=== PATIENT | male | born 1965 | race Caucasian/White ===

== ENCOUNTER 2019-05-02 12:58 | Outpatient (CLI) | payer BC ==
--- NOTE | 2019-05-02 14:43 | RAD ---
LUMBAR SPINE: 05/02/19 Four views. INDICATION: Back pain. Lumbar vertebrae maintain height. There is mild anterolisthesis at L5-S1 and there is evidence of pos terior spondylolysis at L5-S1. There is loss of disc space at all levels. Prominent facet hypertrophy . Mild osteophytes in the lumbar vertebrae. The anterolisthesis at L5-S1 appears to exacerbate slight ly with extension. IMPRESSION: Degenerative changes of the lumbar spine. Mild anterolisthesis at L5-S1 with evidence of posterior sp ondylolysis. POS: OFF
== END 2019-05-02 12:59 | disposition home or self-care (01) ==
LOC: TBSIIMAG 12:58
PROVIDERS: ATTEND Surgery
DX: M47.26 Other spondylosis with radiculopathy, lumbar region (principal); M43.17 Spondylolisthesis, lumbosacral region
CPT/HCPCS: 72110

== ENCOUNTER 2019-06-14 08:27 | Day surgery (SDC) | payer BC ==
[2019-06-14 09:11] LABS: #Basophils 0.1 thou/uL (0.0-0.2); #Eosinphils 0.1 thou/uL (0.0-0.7); #Lymphocytes 1.6 thou/uL (1.20-3.40); #Monocytes 0.6 thou/uL (0.11-0.59); #Neutrophils 5.6 thou/uL (1.40-6.50); %Basophils 0.7 % (0.0-1.0); %Eosinophils 0.8 % (0.0-10.0); %Lymphocytes 20.6 % (21.0-51.0); %Monocytes 7.8 % (0.0-10.0); %Neutrophils 70.1 % (42.0-75.0); Hemoglobin 19.1 g/dL (14.0-18.0); Mean Corpuscular HGB CONC 33.1 g/dL (32.0-36.0); Mean Corpuscular Hemoglobin 33.5 pg (27.0-31.0); Mean Platelet Volume 8.6 fL (7.4-10.4); Platelet Count 221 thou/uL (130-400); RBC Distribution Width 12.6 % (11.5-14.5); Red Blood Cell (RBC) Count 5.69 mill/uL (4.70-6.10)
[2019-06-14 09:17] LABS: INR-International Normal Ratio 0.9; PTT 28.2 SEC (22.9-36.1); Prothrombin Time 12.3 SEC (12.0-14.7)
[2019-06-14 09:24] LABS: Anion Gap 12 mmol/L (10-20); BUN (Urea Nitrogen) 14 mg/dL (8.4-25.7); Calc. Creatinine Clearance 81 mL/min (70-130); Calcium 9.8 mg/dL (7.8-10.44); Carbon Dioxide 31 mmol/L (22-29); Chloride 100 mmol/L (98-107); Estimated GFR-MDRD 58; Glucose 96 mg/dL (70-105); Potassium 4.7 mmol/L (3.5-5.1); Sodium 138 mmol/L (136-145)
[2019-06-14] MEDS ORDERED: Thrombin 5000 UNITS/5 ML VIAL ONE (09:51)
[2019-06-14] MEDS ORDERED: Sodium Chloride 0.9% 10 ML ONE (09:51)
[2019-06-14] MEDS ORDERED: Fentanyl 100 MCG/2 ML VIAL ONE ×5 (10:01→14:04)
[2019-06-14] MEDS ORDERED: Midazolam HCl 2 mg/2 ml Vial ONE (10:07)
[2019-06-14] MEDS ORDERED: Ketorolac Tromethamine 30 MG/ML VIAL ONE (10:50)
[2019-06-14] MEDS ORDERED: Milk Of Magnesia 30 ML UDCUP PO PRN (13:10)
[2019-06-14] MEDS ORDERED: Fleet Enema 133 ML BOT PR PRN (13:10)
[2019-06-14] MEDS ORDERED: traMADol HCl 50 MG TAB PO PRN (13:10)
[2019-06-14] MEDS ORDERED: Mag-Al 1200 mg/1200 mg/30 ML UDCUP PO PRN (13:10)
[2019-06-14] MEDS ORDERED: Acetaminophen/Codeine 30-300mg Tablet PO PRN (13:10)
[2019-06-14] MEDS ORDERED: Ondansetron PF 4 MG/2 ML Vial IVP PRN (13:10)
[2019-06-14] MEDS ORDERED: Acetaminophen 325 MG TAB PO PRN (13:10)
[2019-06-14] MEDS ORDERED: Morphine 2 MG/ML SYRINGE SLOW IVP PRN (13:10)
[2019-06-14] MEDS ORDERED: Bisacodyl 10 MG SUPP PR PRN (13:10)
--- NOTE | 2019-06-14 13:49 | OP ---
DATE OF PROCEDURE: 06/14/2019 LOCATION: OR 12. CHEMISTRY DEPARTMENT CHAIR: Aiden Coronel PA-C PREPROCEDURE DIAGNOSES: Right L3-L4 and right L4-L5 disk extrusions with radiculopathy with low back and right leg pain. POSTPROCEDURE DIAGNOSES: Right L3-L4 and right L4-L5 disk extrusions with radiculopathy with low back and right leg pain. PROCEDURES PERFORMED: 1. Right L3-L4 and right L4-L5 hemilaminotomies, foraminotomies, and diskectomies. 2. Use of operative microscope for microdissection. DESCRIPTION OF PROCEDURE: After informed consent was obtained from the patient, the patient was brought to the OR. He was placed prone. Following anesthesia induction, the prior midline incision was identified from left-sided surgery that he had in the past. This region was sterilely cleansed, prepared, and draped. Proper patient, pause, and identification were carried out. The wound was then opened with a combination of sharp, monopolar, and blunt dissection. Right L3-L4 and right L4-L5 segments were exposed and localization film confirmed our area of interest. Microscope was brought in for microdissection. Right L3-L4 and right L4-L5 hemilaminotomies, foraminotomies, and diskectomies were performed. Right L4 nerve root was quite compressed and compared to the preoperative MRI. More fragments that herniated out of the right L3-L4 disk segment compressing the proximal takeoff of the right L3 and right L4 nerve roots. We were able to maximize freedom of both nerve roots and then, turned our attention to right L4-L5 diskectomy with decompression of the traversing right L5 nerve root. Copious irrigation occurred throughout as did maximizing hemostasis. The wound was then closed in anatomic layers following sprinkling of vancomycin powder. The patient was emerged from anesthesia. Job ID: [id number]
[2019-06-14] MEDS: HYDROcodone/Acetaminophen 7.5/325 mg Tablet PO PRN ×2 (15:02→18:52)
[2019-06-14] MEDS: Sodium Chloride 0.9% 1,000 ML IV SCH ×3 (15:04→20:39)
[2019-06-14] MEDS: CEFAZOLIN 2 GM in Premix Bag 1 BAG IVPB SCH (17:33)
[2019-06-14] MEDS: tiZANidine HCl 4 MG TAB PO PRN (17:38)
[2019-06-14] MEDS ORDERED: Gabapentin 100 MG CAP PO SCH (21:00)
[2019-06-15] MEDS: CEFAZOLIN 2 GM in Premix Bag 1 BAG IVPB SCH (01:38)
[2019-06-15] MEDS: tiZANidine HCl 4 MG TAB PO PRN (01:41)
[2019-06-15] MEDS: HYDROcodone/Acetaminophen 7.5/325 mg Tablet PO PRN ×2 (04:11→08:24)
[2019-06-15 08:12] VITALS: BP 146/78; TEMP 98.3
[2019-06-15] MEDS ORDERED: FLU VACC QS2019-20(6MOS UP)/PF 60 MCG/0.5 ML SYRINGE IM ONE (15:15)
--- NOTE | 2019-06-15 20:01 | DIS ---
DATE OF ADMISSION: 06/14/2019 DATE OF DISCHARGE: 06/15/2019 DISCHARGE DIAGNOSES: 1. Low back pain with right lumbar radiculopathy. 2. Lumbar stenosis with lumbar herniated nucleus pulposus. HOSPITAL COURSE: Mr. Stephens was admitted on 06/14/2019, to undergo right L3-L4 and L4-L5 hemilaminotomy, foraminotomy, diskectomy. The patient's surgery was without complication. There was no CSF leak. He required one overnight stay for adequate pain control at the time of discharge, was doing well postoperatively. He had significant improvement in his right leg pain as well as improved sensation into the right leg. He met criteria for discharge, was ambulating well with good strength in the bilateral lower extremities and improved sensation on exam. Appropriate patient education outpatient followups were provided at the time of discharge, the patient was doing well. He and his were pleased with his outcome postoperatively and certainly understood to call the office with questions or concerns prior to his next followup appointment. Job ID: [id number]
--- NOTE | 2019-06-19 10:18 | EKG ---
Test Reason : PREOP Blood Pressure : / mmHG Vent. Rate : 076 BPM Atrial Rate : 076 BPM P-R Int : 124 ms QRS Dur : 092 ms QT Int : 354 ms P-R-T Axes : 040 041 -12 degrees QTc Int : 398 ms Normal sinus rhythm Minimal voltage criteria for LVH, may be normal variant Nonspecific T wave abnormality Abnormal ECG When compared with ECG of 12-OCT-2016 12:53, No significant change was found Confirmed by EDGARDO SANDOVAL, HARRIET ([id number]) on 06/19/2019 10:17:40 AM Referred By: GERARDO Confirmed By:HARRIET REYNOSO MD
== END 2019-06-15 09:35 | disposition home or self-care (01) ==
LOC: SDC 08:27 → SURG A 14:39 → SDC 06-15 09:35
PROVIDERS: ATTEND Surgery
PROC: 0ST20ZZ Resection of Lumbar Vertebral Disc, Open Approach (ICD-10-PCS; principal; 2019-06-14)
DX: M51.16 Intervertebral disc disorders with radiculopathy, lumbar region (principal); Z88.5 Allergy status to narcotic agent
CPT/HCPCS: 36415; 76000; 80048; 85025; 85610; 85730; 93005; 93010; J0690; J1885; J2250; J2270; J3010; J3370; J3490

== ENCOUNTER 2020-04-25 11:06 | Day surgery (SDC) | payer BC ==
[2020-04-24 09:40] VITALS: BMI 27.1
[2020-04-25] MEDS ORDERED: Magnevist 469MG/ML 20 ML VIAL ONE (11:42)
--- NOTE | 2020-04-25 14:21 | MRI ---
Exam: Lumbar spine MRI with and without contrast HISTORY: Left leg numbness. Back pain. COMPARISON: None FINDINGS: T1 marrow signal hypointensity with associated T2 and STIR hyperintensity along the inferio r endplate of L4 3 in the superior endplate of L4 compatible with type I Modic change. This does appear to be some edema involving the intervening disc space. Mild irregularity and destruction of th e inferior endplate of L3 and superior endplate of L4 are noted. There is associated enhancement of the endplate. No significant enhancement within the disc space. Incidental hemangioma at the L3 verte bral body is noted. Remaining lumbar vertebra have appropriate signal intensity. No pathologic enhancement in the remaining lumbar vertebra. Appropriate signal intensity in the visualized paraspinal muscles and solid organs. T2 hyperintensiti es in the left and right renal cortex are favored to be cysts Conus medullaris terminates at the T12-L1 disc space. Post contrast images do not demonstrate any abn ormal enhancement within the thecal sac including the cauda equina and conus medullaris. T12-L1: Adequate disc hydration. There is a left subarticular disc herniation which deforms the theca l sac. Mild to moderate stenosis of the left aspect of the central spinal canal. Patent bilateral neural foramina L1-L2: Adequate disc hydration. Mild ligament flavum thickening and facet hypertrophy. No significant central canal stenosis or significant neural foraminal narrowing L2-L3: Disc desiccation with mild loss of disc space height. Broad-based disc bulge, ligamentum flavu m thickening and facet hypertrophy result in mild central canal stenosis. T2 and STIR hyperintensity along with enhancement involving the left and right foraminal aspect of the annulus. A nnular fissures are noted. Annular fissure is are adjacent to the left and right foraminal/extraforaminal L2 nerve roots. Mild to moderate neural foraminal narrowing L3-L4: There is a resection of the right facet. There is enhancing scar tissue at the resection site, extending into the right subarticular region. There is also enhancement involving the posterior right aspect of the disc space. There is disc desiccation with a broad-based disc bulge. Mild facet h ypertrophy on the left with fluid. There is mild bilateral ligamentum flavum thickening. Mild to moderate central canal stenosis. Moderate to severe right and mild left neural foraminal narrowing. R ight neural foraminal narrowing predominantly due to disc material. There is some enhancing scar tissue noted in the right neural foramen. L4-L5: Adequate disc hydration. Broad-based disc bulge abuts the thecal sac. There is partial resecti on of the right facet with enhancing scar tissue at the operative site and right subarticular zone. Additional scar tissue appears to be present in the left subarticular zone. There is moderate right a nd moderate to severe left neural foraminal narrowing due to disc material, posterior element hypertrophy and scar tissue in the left neural foramen. L5-S1: Disc desiccation without significant loss of disc space height. Broad-based disc bulge minimal ly contacts the ventral thecal sac. There is partial resection of the right lamina. Associated scar tissue. Overall mild central canal stenosis. Mild to moderate bilateral neural foraminal narrowing. There is heterogeneity involving the left and right S1 vertebral bodies. Correlate for possible insuf ficiency fractures. IMPRESSION: 1. Extensive post surgical changes at the L3-L4 and L4-L5 level. There is enhancing scar tissue encro aching upon subarticular zones and neural foramina as described above. 2. There is abnormal signal intensity involving inferior endplate of L3, superior plate of L4 and int ervening disc. There is associated enhancement. Findings may be on the basis of a type I Modic change. However, possibility of a developing discitis osteomyelitis cannot be excluded given the pres ence of surgical intervention. Clinical correlation is essential. 3. Heterogeneous marrow signal intensity of the sacrum. Correlate for insufficiency fracture. Results of study discussed with Dr. Smalls on 04/25/2020 at 2:17 PM Code CR
== END 2020-04-25 15:40 | disposition home or self-care (01) ==
LOC: SDC/OP 11:06
PROVIDERS: ATTEND Specialist
DX: M51.25 Other intervertebral disc displacement, thoracolumbar region (principal); D18.09 Hemangioma of other sites; M48.07 Spinal stenosis, lumbosacral region; M51.16 Intervertebral disc disorders with radiculopathy, lumbar region; M96.1 Postlaminectomy syndrome, not elsewhere classified; M47.26 Other spondylosis with radiculopathy, lumbar region; M48.061 Spinal stenosis, lumbar region without neurogenic claudication; M47.817 Spondylosis without myelopathy or radiculopathy, lumbosacral region; M46.1 Sacroiliitis, not elsewhere classified; Z88.5 Allergy status to narcotic agent; Z98.890 Other specified postprocedural states
CPT/HCPCS: 72158; 85025; 85652; 86140; A9579

== ENCOUNTER 2020-05-15 09:37 | Outpatient (CLI) | payer BC ==
--- NOTE | 2020-05-15 10:34 | RAD ---
4 views of the lumbar spine: 05/15/2020 COMPARISON: 05/02/2019 HISTORY: Left leg numbness, back pain FINDINGS: The lumbar pedicles appear intact on the frontal imaging. Standing neutral lateral exam demonstrates minimal anterolisthesis in the 3 mm range at L4-5 and L5-S 1. There is bilateral facet hypertrophy at L4-5 and L5-S1. Mild anterior wedge compression deformity of T12 noted, unchanged when compared to the prior exam. Th ere is disc space narrowing with anterior osteophyte formation at T11-12. There is disc space narrowing and anterior osteophyte formation at L2-3, L3-4, and L4-5. On flexion imaging the anterolis thesis at L4-5 increases to 6 mm and the anterolisthesis at L5-S1 increases to 6 mm. Upon extension there is no anterolisthesis at L4-5 and there is minimal anterolisthesis at L5-S1 measuring 3 mm per IMPRESSION: Multilevel degenerative change as detailed above. There is anterolisthesis at L4-5 and L5 -S1, most prominent upon flexion as detailed above.
== END 2020-05-15 09:38 | disposition home or self-care (01) ==
LOC: SCSRAD 09:37
PROVIDERS: ATTEND Specialist
DX: M43.06 Spondylolysis, lumbar region (principal); M43.17 Spondylolisthesis, lumbosacral region; M43.16 Spondylolisthesis, lumbar region; M47.816 Spondylosis without myelopathy or radiculopathy, lumbar region
CPT/HCPCS: 72110

== ENCOUNTER 2025-04-09 08:12 | Outpatient (CLI) | payer BC | END 2025-04-09 08:13 | disposition home or self-care (01) | LOC: RAD 08:12 | PROVIDERS: ATTEND Internal Medicine Critical Care Medicine | DX: R06.00 Dyspnea, unspecified (principal) | CPT/HCPCS: 71046 ==